=== PATIENT | female | born 1945 | race Caucasian/White ===

== ENCOUNTER → 2017-12-25 | Outpatient (CLI) | payer OTHER ==
[2015-07-20 07:16] VITALS: BP 152/90
--- NOTE | 2017-12-28 10:44 | MG ---
HISTORY: SCREENING Comparison: Previous mammogram dated 09/14/2016 FINDINGS: Bilateral CC and MLO projections of the right and left breast were obtained. Scattered fibroglandula r tissue is seen to be present. A 4 mm nodule is identified in the posterior 3rd, inferior medial as pect of the right breast. This represents a new finding since the previous exam. In addition, increas ing number of clustered microcalcifications are identified in the medial aspect of the right breast, some of which appear indistinct.. No skin thickening or nipple retraction is appreciated. No patho logical lymphadenopathy can be identified. Benign-appearing calcifications scattered throughout the r ight and left breasts are observed. IMPRESSION: 4 MM NODULE LOCATED POSTERIORLY IN THE INFERIOR MEDIAL ASPECT OF THE RIGHT BREAST REPRESENTS A NEW F INDING INCREASING NUMBER OF CLUSTERED MICROCALCIFICATIONS IN THE MEDIAL ASPECT OF THE RIGHT BREAST, SOME WHI CH APPEAR INDISTINCT. ACR CATEGORY: 0 - INCOMPLETE-NEEDS ADDITIONAL IMAGING EVALUATION PATIENT SHOULD BE BROUGHT BACK FOR SPOT MAGNIFICATION CC AND MLO VIEWS OF THE RIGHT BREAST TO EVALUAT E BOTH THE MICROCALCIFICATIONS AND NEW PARENCHYMAL NODULE. IN ADDITION TARGETED RIGHT BREAST ULTRASOU ND MAY ALSO BE WARRANTED. Diagnostic CAD was utilized and reviewed. * 0 (ZERO) - ASSESSMENT INCOMPLETE; ADDITIONAL IMAGING IS NEEDED. * 1/1 (ONE) - NEGATIVE. * 2/II (TWO) - BENIGN FINDINGS. * 3/III (THREE) - PROBABLY BENIGN FINDING; SHORT INTERVAL FOLLOW-UP SUGGESTED. * 4/IV (FOUR) - SUSPICIOUS ABNORMALITY; BIOPSY SHOULD BE CONSIDERED. * 5/V - HIGHLY SUSPICIOUS OF MALIGNANCY; BIOPSY SHOULD BE PERFORMED. A NEGATIVE X-RAY REPORT SHOULD NOT DELAY BIOPSY IF A DOMINANT OR CLINICALLY SUSPICIOUS MASS IS PRESENT; 4 TO 8 PERCENT OF CANCERS ARE NOT IDENTIFIED BY X-RAY. A NEGA TIVE REPORT MAY REINFORCE THE CLINICAL IMPRESSION. ADENOSIS AND DENSE BREASTS MAY OBSCURE AN UNDERLYING NEOPLASM. Reported By:
== END ==
LOC: RAD 09:54
PROVIDERS: ATTEND Specialist
DX: Z12.31 Encounter for screening mammogram for malignant neoplasm of breast (principal)
CPT/HCPCS: 77067